=== PATIENT | male | born 1985 | race Caucasian/White ===

== ENCOUNTER 2020-04-10 20:39 | Emergency (ER) | payer BC, OTHER ==
[~2020-04-10] VITALS: Ht 180.3 cm; Wt 99.8 kg
[2020-04-10 23:57] VITALS: BP 139/79
== END 2020-04-10 23:58 | disposition home or self-care (01) ==
LOC: ER 20:39
DX: G44.59 Other complicated headache syndrome (principal); G43.909 Migraine, unspecified, not intractable, without status migrainosus; F32.9 Major depressive disorder, single episode, unspecified; F41.9 Anxiety disorder, unspecified; F17.210 Nicotine dependence, cigarettes, uncomplicated